=== PATIENT | male | born 1945 | race Caucasian/White ===

== ENCOUNTER → 2017-01-03 | Outpatient (CLI) | payer MEDICARE ==
[~2017-01-03] MED LIST: FLAX OIL1000 MG PO; FLOMAX 0.4 MG0.4 MG PO; GLUCOPHAGE 500500 MG PO; HYDROCHLOROTHIA25 MG PO; LISINOPRIL40 MG PO; LOPRESSOR 25 MG25 MG PO; NORCO 7.5-3251 EACH PO; NORVASC 5 MG TAB5 MG PO; OMEPRAZOLE20 MG PO; PYRIDIUM100 MG PO; TRAMADOL HCL50 MG PO; TYLENOL PM EX-1 EACH PO; XARELTO10 MG PO
== END ==
LOC: ECHO 11:19
DX: Z01.810 Encounter for preprocedural cardiovascular examination (principal); I49.3 Ventricular premature depolarization
CPT/HCPCS: ECHO; 93306

== ENCOUNTER → 2017-02-12 | Outpatient (CLI) | payer MEDICARE ==
[2017-02-12 09:36] LABS: HEMOGLOBIN 14.3 gm/dl (14.0-17.5); RED BLOOD COUNT 4.9 M/UL (4.20-5.50); WHITE BLOOD COUNT 7.4 K/UL (4.5-11.0)
[2017-02-12 09:49] LABS: BUN/CREATININE RATIO 15 (0-10)
== END ==
LOC: OPSV2 08:52
PROVIDERS: Orthopaedic Surgery
DX: Z01.810 Encounter for preprocedural cardiovascular examination (principal); Z01.812 Encounter for preprocedural laboratory examination; Z01.818 Encounter for other preprocedural examination; M16.12 Unilateral primary osteoarthritis, left hip
CPT/HCPCS: 36415; 71020; 80048; 81001; 83036; 85025; 87081; 93005

== ENCOUNTER 2017-02-25 05:51 | Inpatient (IN) | payer MEDICARE ==
[~2017-02-25] VITALS: Ht 172.7 cm; Wt 103.9 kg
[2017-02-25] MEDS ORDERED: TRAMADOL HCL50 MG PO (06:49)
[2017-02-25] MEDS ORDERED: GLUCOPHAGE 500500 MG PO (06:51)
[2017-02-25] MEDS ORDERED: LISINOPRIL40 MG PO (06:51)
[2017-02-25] MEDS ORDERED: HYDROCHLOROTHIA25 MG PO (06:52)
[2017-02-25] MEDS ORDERED: NORVASC 5 MG TAB5 MG PO (06:52)
[2017-02-25] MEDS ORDERED: OMEPRAZOLE20 MG PO (06:53)
[2017-02-25] MEDS ORDERED: FLAX OIL1000 MG PO (06:53)
[2017-02-25] MEDS ORDERED: TYLENOL PM EX-1 EACH PO (06:54)
[2017-02-25 11:07] LABS: HEMOGLOBIN 12.1 gm/dl (14.0-17.5)
[2017-02-26 05:48] LABS: HEMOGLOBIN 12.6 gm/dl (14.0-17.5); RED BLOOD COUNT 4.35 M/UL (4.20-5.50); WHITE BLOOD COUNT 11.1 K/UL (4.5-11.0)
[2017-02-26 06:08] LABS: BUN/CREATININE RATIO 16 (0-10)
[2017-02-27 06:04] LABS: HEMOGLOBIN 12.4 gm/dl (14.0-17.5); RED BLOOD COUNT 4.25 M/UL (4.20-5.50)
[2017-02-27 06:24] LABS: BUN/CREATININE RATIO 16 (0-10)
[2017-02-27] MEDS ORDERED: PYRIDIUM100 MG PO (13:08)
[2017-02-27] MEDS ORDERED: XARELTO10 MG PO (13:09)
[2017-02-27] MEDS ORDERED: FLOMAX 0.4 MG0.4 MG PO (13:09)
[2017-02-27] MEDS ORDERED: NORCO 7.5-3251 EACH PO (13:41)
== END 2017-02-27 15:33 | disposition home or self-care (01) | DRG 470 ==
LOC: ZOBSOF 05:51 → M/S 14:07
PROVIDERS: ADMIT Orthopaedic Surgery
PROC: 0T9B70Z Drainage of Bladder with Drainage Device, Via Natural or Artificial Opening (ICD-10-PCS; 2017-02-25)
PROC: 0SRB04A Replacement of Left Hip Joint with Ceramic on Polyethylene Synthetic Substitute, Uncemented, Open Approach (ICD-10-PCS; principal; 2017-02-25 07:45)
DX: M16.12 Unilateral primary osteoarthritis, left hip (principal); I97.89 Other postprocedural complications and disorders of the circulatory system, not elsewhere classified; R33.9 Retention of urine, unspecified; I10 Essential (primary) hypertension; E78.5 Hyperlipidemia, unspecified; E11.9 Type 2 diabetes mellitus without complications; K21.9 Gastro-esophageal reflux disease without esophagitis; Z90.79 Acquired absence of other genital organ(s); Z79.84 Long term (current) use of oral hypoglycemic drugs; R31.0 Gross hematuria; Z82.49 Family history of ischemic heart disease and other diseases of the circulatory system; Z83.3 Family history of diabetes mellitus; Z85.828 Personal history of other malignant neoplasm of skin; E66.9 Obesity, unspecified; Z68.34 Body mass index [BMI] 34.0-34.9, adult; R00.8 Other abnormalities of heart beat
CPT/HCPCS: 36415; 72170; 76000; 80048; 81001; 82550; 82553; 82962; 84443; 84484; 85014; 85018; 85025; 86850; 86900; 86901; 93005; 97110; 97116; 97530; 97535; C1776; J0690; J2001; J2250; J2270; J2370; J2550; J3010; J7030; J7050; J7120; P9045

== ENCOUNTER 2017-02-28 17:35 | Observation (INO) | payer MEDICARE ==
[~2017-02-28] VITALS: Ht 172.7 cm; Wt 101.2 kg
[~2017-02-28 17:35] MED LIST changes: -LOPRESSOR 25 MG25 MG PO
[2017-02-28 20:33] LABS: HEMOGLOBIN 11.7 gm/dl (14.0-17.5); RED BLOOD COUNT 4.05 M/UL (4.20-5.50); WHITE BLOOD COUNT 11.9 K/UL (4.5-11.0)
[2017-02-28 20:49] LABS: BUN/CREATININE RATIO 21 (0-10)
[2017-03-01] MEDS ORDERED: LOPRESSOR 25 MG25 MG PO (13:56)
== END 2017-03-01 14:25 | disposition home or self-care (01) ==
LOC: ER1 17:35 → M/S 03-01 00:36 → ZEROF 03-01 00:36 → M/S 03-01 01:49
PROVIDERS: Emergency Medicine; ADMIT Internal Medicine
DX: R55 Syncope and collapse (principal); I10 Essential (primary) hypertension; E11.9 Type 2 diabetes mellitus without complications; E78.5 Hyperlipidemia, unspecified; K21.9 Gastro-esophageal reflux disease without esophagitis; R70.0 Elevated erythrocyte sedimentation rate; N40.0 Benign prostatic hyperplasia without lower urinary tract symptoms; E66.9 Obesity, unspecified; Z79.01 Long term (current) use of anticoagulants; Z79.891 Long term (current) use of opiate analgesic; Z79.899 Other long term (current) drug therapy; Z96.649 Presence of unspecified artificial hip joint; Z85.828 Personal history of other malignant neoplasm of skin; Z68.34 Body mass index [BMI] 34.0-34.9, adult
CPT/HCPCS: 36415; 70450; 71010; 72125; 72170; 72192; 80053; 82550; 82553; 82962; 83605; 83690; 83874; 83880; 84484; 85025; 85379; 85610; 85730; 86140; 87040; 93005; 99284; G0378; J7050; Q9963